=== PATIENT | female | born 1980 | race Asian ===

== ENCOUNTER 2023-10-21 10:02 | Outpatient (AMB) | payer OTHER, SELFPAY ==
[2023-10-21 10:17] VITALS: BP 130/76; BMI 25.9
--- NOTE | 2023-10-21 10:17 | A.OFFVIS_ITS ---
Intake Vital Signs 10/21/23 10:17 Height 5 ft 3 in Weight 146 lb BMI 25.9 BP 130/76 Intake Visit Reasons: conceive/PCP Referral Allergies No Known Allergies Allergy (Verified 10/21/23 10:19) Is last menstrual period known: Yes Last menstrual period: 10/13/23 HPI HPI Comments History of Present Illness Details The patient is presenting for consult. The patient has difficult high-risk obstetrical history including in 2007 premature rupture of membranes with severe oligohydramnios delivered by a followed by twin gestation, cerclage at 14 weeks and hysterotomy at 20 weeks. The patient is currently diabetic on metformin . No recent co testing and mammogram [facility] Medical History High cholesterol Diabetes mellitus Surgical History Hx of section Social History Alcohol intake: never Patient Tobacco Use Status: Never used Tobacco Female Reproductive History Menstrual Duration of menses: 6-7 days Date of last menstrual period: 10/13/23 control method: none Total pregnancies: 2 Premature: 2 Number of Living Children: 0 Physical Exam Vital Signs: Last Vital Signs BP 130/76 10/21/23 10:17 BMI result Body Mass Index 25.9 Assessment & Plan Assessment & Plan (1) care: Comment: Diabetes on metformin History of PROM with oligohydramnios delivered by at 26 weeks History of cerclage, delivered at 20 weeks via a hysterotomy 43 years of age Code(s): Z34.90 - Encounter for supervision of normal , unspecified, unspecified trimester Plan: Discussed with the patient the risk factors for future potential including diabetes with all its implications on , history of problem with its recurrence rate, history of hysterotomy and at 26 weeks and indication for future early , history of cerclage with questionable indication, advanced maternal age with all its implication on difficulty of getting increase the risk of SAB and risk of genetic abnormalities. vitamin tablet p.o. q.d., recommended the patient to schedule annual exam within few weeks. All questions answered, the patient verbalized understanding Coding Level of Care Code New Pt Level 3 (30942) Diagnoses care Z34.90
== END 2023-10-21 11:08 | disposition home or self-care (01) ==
PROVIDERS: PCP Internal Medicine; Visit Provider Obstetrics & Gynecology
DX: Z34.90 Encounter for supervision of normal pregnancy, unspecified, unspecified trimester (principal)
CPT/HCPCS: 99203

== ENCOUNTER → 2023-10-21 10:02 | Outpatient (BNVA) | payer OTHER, SELFPAY | PROVIDERS: PCP Internal Medicine; Visit Provider Obstetrics & Gynecology | DX: Z71.89 Other specified counseling (principal); Z31.61 Procreative counseling and advice using natural family planning | CPT/HCPCS: 99202 ==

== ENCOUNTER 2023-12-16 08:46 | Outpatient (AMB) | payer OTHER, SELFPAY ==
[2023-12-16 08:48] VITALS: BP 140/76; BMI 26.0
--- NOTE | 2023-12-16 08:48 | MHC.OFFVIS ---
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 No complaints. Last Pap/HPV was within normal many years ago Last Mammogram was few years ago PFSH Medical History High cholesterol Diabetes mellitus Surgical History Hx of section Social History Alcohol intake: never Patient Tobacco Use Status: Never used Tobacco Female Reproductive History Menstrual Duration of menses: 6-7 days Date of last menstrual period: 08/12/23 control method: none Total pregnancies: 2 Ab spontaneous: 2 Review of Systems Const All systems reviewed & are unremarkable except as noted in HPI and below Card Reports as per HPI Resp Reports as per HPI GI Reports as per HPI and Reports no additional complaints Reports as per HPI Physical Exam Vital Signs: BMI result Body Mass Index 26.0 Const General: cooperative, healthy appearing and comfortable Chest Chest palpation & inspection: normal inspection of the chest and normal palpation of entire chest wall Breast/axilla inspection: normal inspection of the breasts and normal inspection of the axillae Breast/axilla palpation: normal palpation of the breasts, normal palpation of the axillae and no axillary lymphadenopathy Resp Effort & Inspection: normal respiratory effort Auscultation: clear to auscultation bilaterally Percussion: percussion normal Cardio Palpation: normal PMI Rate: regular rate Rhythm: regular rhythm Heart sounds: no murmurs and no rubs Peripheral pulses: Peripheral pulses 2+ throughout GI Inspection: Yes normal to inspection Palpation (GI): Soft to palpation, nontender, no guarding, not rigid and No hepatosplenomegaly present Percussion: Yes normal to percussion Auscultation: normal bowel sounds Rectal Exam - Female: deferred General: Yes bladder normal to palpation External Female Exam: No lesion Speculum Exam - Vagina: normal appearance of the vagina, normal palpation, normal vaginal discharge and not erythematous Speculum Exam - Cervix: normal appearance of the cervix and normal palpation Bimanual exam- vagina & uterus: normal bimanual exam, normal palpation, uterine size normal, bladder normal to palpation, consistency normal and normal palpation Bimanual Exam- Adnexa, other: normal adnexae, no masses and no tenderness Assessment & Plan Assessment & Plan (1) Well woman exam: Code(s): Z01.419 - Encounter for gynecological examination (general) (routine) without abnormal findings Plan: Cotesting done. Mammogram ordered. Counseled the patient about the recommended dietary allowance of 1000 mg of Calcium & 600 IU of vitamin D. The patient was instructed to perform monthly self-breast exams and to schedule an annual exam in a year; All questions answered and the patient verbalized understanding. Instructed the patient to schedule annual exam in a year Orders: Orders MM screening mammo BI Today Z12.31 - Encounter for screening mammogram for malignant neoplasm of breast Coding Level of Care Code Est Pt Prev Care 40-64y(50659) Diagnoses Well woman exam Z01.419
== END 2023-12-16 09:19 | disposition home or self-care (01) ==
PROVIDERS: PCP Internal Medicine; Visit Provider Obstetrics & Gynecology
DX: Z01.419 Encounter for gynecological examination (general) (routine) without abnormal findings (principal)
CPT/HCPCS: 99396

== ENCOUNTER 2023-12-16 08:46 | Outpatient (REF) | payer OTHER, SELFPAY ==
[2023-12-20 21:08] LABS: HPV mRNA E6/E7 rflx Not Detected (Not Detected)
== END 2023-12-16 08:47 | disposition home or self-care (01) ==
LOC: HO.LNP 08:46
PROVIDERS: PCP Internal Medicine; Visit Provider Obstetrics & Gynecology
DX: Z01.419 Encounter for gynecological examination (general) (routine) without abnormal findings (principal); Z11.51 Encounter for screening for human papillomavirus (HPV); Z71.9 Counseling, unspecified
CPT/HCPCS: 87624; 88142; 99396

== ENCOUNTER 2024-02-05 15:04 | Outpatient (REF) | payer OTHER, SELFPAY ==
--- NOTE | ~2024-02-05 | MM_ITS ---
EXAMINATION: MM SCREENING DIGITAL BREAST TOMOSYNTHESIS, BILATERAL CLINICAL INFORMATION: Screening. Asymptomatic. COMPARISON: Mammography: This is a baseline mammogram. TECHNIQUE: Digital breast tomosynthesis is performed in both the craniocaudal and mediolateral oblique views along with computer-aided detection (CAD). Synthesized 2D images are generated from the tomosynthesis. FINDINGS: There are scattered areas of fibroglandular density (ACR BI-RADS breast composition Category b). There are no significant masses, abnormal calcifications, or other abnormalities. MM/MM tomosynthesis screening BI IMPRESSION: No mammographic evidence of malignancy. ASSESSMENT: BI-RADS BI-RADS 1 - Negative RECOMMENDATION: Routine annual mammography screening. 1 year F/U This examination should not preclude the clinical evaluation of a suspicious palpable abnormality. This patient's information was entered into a reminder system with a target due date for their next mammogram.
== END 2024-02-05 15:05 | disposition home or self-care (01) ==
LOC: HO.MAMMO 15:04
PROVIDERS: Absent Provider Advanced Practice Midwife; PCP Internal Medicine; Visit Provider Internal Medicine
DX: Z12.31 Encounter for screening mammogram for malignant neoplasm of breast (principal)
CPT/HCPCS: 77063; 77067

== ENCOUNTER → 2024-02-05 15:15 | Outpatient (BNV) | payer OTHER, SELFPAY | PROVIDERS: Absent Provider Advanced Practice Midwife; PCP Internal Medicine; Visit Provider Radiology Diagnostic Radiology | DX: Z12.31 Encounter for screening mammogram for malignant neoplasm of breast (principal) | CPT/HCPCS: 77063; 77067 ==

== ENCOUNTER 2025-07-09 15:36 | Outpatient (REF) | payer OTHER, SELFPAY ==
--- NOTE | ~2025-07-09 | MM_ITS ---
EXAMINATION: MM SCREENING DIGITAL BREAST TOMOSYNTHESIS, BILATERAL CLINICAL INFORMATION: Screening. Asymptomatic. COMPARISON: Mammography: Comparison is made with available priors TECHNIQUE: Digital breast mammography with tomosynthesis is performed in both the craniocaudal and mediolateral oblique views along with computer-aided detection (CAD). FINDINGS: There are scattered areas of fibroglandular density. There are no significant masses, abnormal calcifications, or other abnormalities. MM/MM tomosynthesis screening BI IMPRESSION: No mammographic evidence of malignancy. ASSESSMENT: BI-RADS Category 1: Negative RECOMMENDATION: Routine annual mammography screening. 1 year F/U This examination should not preclude the clinical evaluation of a suspicious palpable abnormality. This patient's information was entered into a reminder system with a target due date for their next mammogram. Electronically signed by: Tana Mandel DO 07/13/2025 02:29 PM [facility]
== END 2025-07-09 15:37 | disposition home or self-care (01) ==
LOC: HO.MAMMO 15:36
PROVIDERS: PCP Internal Medicine; Visit Provider Internal Medicine
DX: Z12.31 Encounter for screening mammogram for malignant neoplasm of breast (principal)
CPT/HCPCS: 77063; 77067

== ENCOUNTER → 2025-07-09 15:45 | Outpatient (BNV) | payer OTHER, SELFPAY | PROVIDERS: PCP Internal Medicine; Visit Provider Internal Medicine | DX: Z12.31 Encounter for screening mammogram for malignant neoplasm of breast (principal) | CPT/HCPCS: 77063; 77067 ==